=== PATIENT | male | born 1965 | race Caucasian/White ===

== ENCOUNTER 2019-04-09 10:54 | Observation (INO) ==
[2019-04-09] MEDS ORDERED: Isovue-370 500 ML BOTTLE IVP ONE (11:04)
[2019-04-09] MEDS ORDERED: Ondansetron 4 MG/2 ML VIAL IVP ONE (11:05)
[2019-04-09] MEDS ORDERED: Ketorolac 15 MG/ML VIAL IVP ONE (11:05)
[2019-04-09] MEDS ORDERED: Morphine Sulfate 2 MG/ML SYRINGE IVP ONE (11:05)
[2019-04-09 11:25] LABS: Basophils # 0.1 K/mcL (0.0-0.2); Basophils % 0.5 %; Eosinophils # 0.1 K/mcL (0.0-0.6); Eosinophils % 1.1 %; Hematocrit 46.9 % (37.5-50.1); Hemoglobin 15.4 g/dL (12.9-16.9); Immature Granulocytes % 0.3 % (0-4); Lymphocytes # 2.9 K/mcL (0.6-4.6); Lymphocytes % 25.7 %; Mean Corpuscular HGB Conc 32.8 g/dL (31.6-35.5); Mean Corpuscular Hemoglobin 30.2 pg (28.0-33.3); Mean Platelet Volume 10.4 fL (9.4-12.4); Monocytes # 0.6 K/mcL (0.0-1.3); Monocytes % 5.3 %; Neutrophils # 7.7 K/mcL (1.6-8.9); Platelet Count 219 K/mcL (140-400); Red Cell Distribution Width 13.2 % (11.5-14.5); Segmented Neutrophils % 67.1 %; White Blood Count 11.4 K/mcL (4.3-11.1)
[2019-04-09 11:44] LABS: Alanine Aminotransferase 11 Units/L (7-52); Albumin 4.2 g/dL (3.5-5.7); Albumin/Globulin Ratio 1.8 (1.1-2.2); Alkaline Phosphatase 62 Units/L (34-104); Amylase 44 Units/L (29-103); Aspartate Amino Transferase 14 Units/L (13-39); BUN/Creatinine Ratio 15 (6-26); Bilirubin,Total 0.4 mg/dL (0.3-1.0); Blood Urea Nitrogen 16 mg/dL (6-20); Calcium 8.8 mg/dL (8.6-10.3); Carbon Dioxide 28 mEq/L (23-29); Chloride 105 mEq/L (98-107); Globulin 2.3 g/dL (2.4-3.5); Glucose 104 mg/dL (70-105); Osmolality,Calculated 285 (280-300); Potassium 4.3 mEq/L (3.5-5.1); Sodium 137 mEq/L (136-145); Total Protein 6.5 g/dL (6.4-8.9); Troponin I 0.03 ng/mL (< 0.04); eGFR For African Americans > 60 (> 60); eGFR For Non-African Americans > 60 (> 60)
[2019-04-09] MEDS ORDERED: Ondansetron 4 MG/2 ML VIAL IVP PRN (13:42)
[2019-04-09] MEDS: Nitroglycerin 0.4 MG TAB.SUBL SL PRN ×2 (14:50→19:08)
[2019-04-09] MEDS: Ketorolac 15 MG/ML VIAL IVP PRN (17:27)
[2019-04-09] MEDS: Acetaminophen 325 MG TABLET PO PRN (22:40)
[2019-04-10] MEDS: Ketorolac 15 MG/ML VIAL IVP PRN ×3 (03:41→20:52)
[2019-04-10 06:22] LABS: Hematocrit 43.9 % (37.5-50.1); Hemoglobin 14.6 g/dL (12.9-16.9); Mean Corpuscular HGB Conc 33.3 g/dL (31.6-35.5); Mean Corpuscular Volume 90.3 fL (83.0-100.0); Mean Platelet Volume 10.8 fL (9.4-12.4); Platelet Count 187 K/mcL (140-400); Red Blood Count 4.86 M/mcL (4.19-5.50); Red Cell Distribution Width 13.2 % (11.5-14.5); White Blood Count 8.1 K/mcL (4.3-11.1)
[2019-04-10] MEDS ORDERED: Regadenoson 0.4 MG/5 ML SYRINGE IVP ONE (06:30)
[2019-04-10 06:33] LABS: BUN/Creatinine Ratio 16 (6-26); Blood Urea Nitrogen 17 mg/dL (6-20); Calcium 8.4 mg/dL (8.6-10.3); Carbon Dioxide 28 mEq/L (23-29); Chloride 106 mEq/L (98-107); Chol/HDL Ratio 6.4 (0-4.9); Cholesterol 167 mg/dL (< 200); Glucose 94 mg/dL (70-105); HDL Cholesterol 26 mg/dL (40-59); LDL Cholesterol,Calculated 109 mg/dL (0-99); Osmolality,Calculated 291 (280-300); Potassium 3.9 mEq/L (3.5-5.1); Sodium 140 mEq/L (136-145); Triglycerides 160 mg/dL (< 150); Troponin I < 0.03 ng/mL (< 0.04); eGFR For African Americans > 60 (> 60); eGFR For Non-African Americans > 60 (> 60)
[2019-04-10 07:06] LABS: Estimated Average Glucose 114 mg/dl
[2019-04-10] MEDS: Acetaminophen 325 MG TABLET PO PRN (09:19)
[2019-04-11] MEDS: Acetaminophen 325 MG TABLET PO PRN (01:34)
[2019-04-11 07:12] VITALS: BP 147/74
[2019-04-11] MEDS: Ketorolac 15 MG/ML VIAL IVP PRN (07:56)
== END 2019-04-11 11:10 | disposition home or self-care (01) ==
LOC: 3BNU 10:54 → EMEROOARM 10:54 → 3BNU 13:53
PROVIDERS: ADMIT Internal Medicine; ATTEND Internal Medicine